=== PATIENT | male | born 1980 | race African-American/Black ===

== ENCOUNTER 2018-10-29 03:30 | Emergency (ER) | payer SELFPAY ==
[2018-10-29 03:55] LABS: Bilirubin Negative (Negative); Blood, Urine Large (Negative); Clarity CLEAR (Clear); Glucose, Urine (Dipstick) Negative (Negative); Leukocyte Negative (Negative); Nitrite Negative (Negative); Protein, Urine (Dipstick) Trace mg/dL (Neg-Trace); Specific Gravity, Urine 1.033 (1.002-1.036); pH, Urine 5.5 (5.0-9.0)
[2018-10-29 03:58] LABS: Bacteria/HPF None Seen HPF (None Seen); Hyaline Casts/LPF 4-6 HYALINE CAST LPF (0-3 Hyaline); Pathc Cast-AUWi Flag 0.43 (0-2.49); RBC/HPF 21-50 HPF (0-3); Squamous Epithelial 0-3 HPF (0-3); WBC/HPF 0-3 HPF (0-3)
[2018-10-29 04:18] LABS: Eosinophils 1 % (0-10); Hemoglobin 14.5 g/dL (14.0-18.0); Lymphocytes 52 % (21-51); MDiff Complete? YES; Mean Corpuscular HGB CONC 34.1 g/dL (32.0-36.0); Mean Corpuscular Hemoglobin 31.4 pg (27.0-31.0); Mean Corpuscular Volume 92.3 fL (78.0-98.0); Mean Platelet Volume 7.7 fL (7.4-10.4); Monocytes 6 % (0-10); Neutrophil 41 % (42-75); Platelet Count 251 thou/uL (130-400); Platelet Morphology Comment Appears Adequate; RBC Distribution Width 12.1 % (11.5-14.5); Red Blood Cell (RBC) Count 4.61 mill/uL (4.70-6.10); White Blood Cell (WBC) Count 6.7 thou/uL (4.8-10.8)
[2018-10-29 04:19] LABS: ALT (SGPT) 22 U/L (8-55); AST (SGOT) 20 U/L (5-34); Albumin 4.4 g/dL (3.5-5.0); Alkaline Phosphatase 77 U/L (40-150); Anion Gap 15 mmol/L (10-20); BUN (Urea Nitrogen) 15 mg/dL (8.9-20.6); Bilirubin, Total 0.5 mg/dL (0.2-1.2); Calc. Creatinine Clearance 0 mL/min (70-130); Calcium 9.3 mg/dL (7.8-10.44); Carbon Dioxide 24 mmol/L (22-29); Chloride 104 mmol/L (98-107); Estimated GFR-MDRD 75; Globulin 3.4 g/dL (2.4-3.5); Glucose 135 mg/dL (70-105); Lipase 27 U/L (8-78); Potassium 3.7 mmol/L (3.5-5.1); Protein, Total 7.8 g/dL (6.0-8.3); Sodium 139 mmol/L (136-145)
[2018-10-29] MEDS ORDERED: Ondansetron PF 4 MG/2 ML Vial ONE (04:55)
[2018-10-29] MEDS ORDERED: Ketorolac Tromethamine 30 MG/ML VIAL ONE (04:55)
[2018-10-29] MEDS ORDERED: Morphine 4 MG/ML VIAL ONE (04:55)
--- NOTE | 2018-10-29 16:57 | CT ---
PRELIMINARY REPORT/[facility]/EMERGENTY AFTER-HOURS PROCEDURE CT Abdomen and Pelvis Without Contrast EXAM DATE/TIME: 10/29/2018 4:45 AM CLINICAL HISTORY: 37 years old, male; Pain; Abdominal pain; Flank; Left; Patient HX: Er 5; L flank pain. 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 No urinary complaints. No reported fever. TECHNIQUE: Axial computed tomography images of the abdomen and pelvis without contrast. Coronal reformatted images were created and reviewed. COMPARISON: No relevant prior studies available. FINDINGS: Lower thorax: The lung bases are clear. ABDOMEN: Liver: Suspect mild fatty infiltration of the liver. Gallbladder and bile ducts: No definite gallbladder abnormality by CT. No biliary tree dilation. Pancreas: Unremarkable. Spleen: Unremarkable. Adrenals: Unremarkable appearance of the spleen, adrenal glands, and pancreas. Kidneys and ureters: Right kidney: 2 small right intrarenal calculi. No hydronephrosis or visible mass. No hydroureter or visible ureteral calculus. Left kidney: No intrarenal calculus. Perinephric stranding. Mild left hydronephrosis and hydroureter. There is a 5 mm distal left ureteral calculus, at the UVJ. Stomach and bowel: There are no CT findings to strongly suggest diverticulitis. Appendix: The appendix is visualized and appears normal. PELVIS: Bladder: Urinary bladder appears essentially unremarkable by CT. Possibly some mild diffuse urinary b ladder wall thickening. This may be related to prostate enlargement. While nonspecific, this could al so indicate evidence for cystitis. Please correlate clinically. Reproductive: Prostate enlargement with transverse diameter of 4.8 cm. ABDOMEN and PELVIS: Intraperitoneal space: No free air, ascites, or bowel distention. Bones/joints: No significant acute finding. Soft tissues: Small umbilical hernia, containing only fat. Vasculature: No evidence for abdominal aortic aneurysm. Lymph nodes: No retroperitoneal adenopathy. IMPRESSION: 1. 5 mm distal left ureteral calculus, at the UVJ. 2. Mild left hydronephrosis and hydroureter. 3. 2 small right intrarenal calculi. 4. Prostate enlargement and possible urinary bladder wall thickening, see above. 5. No diverticulitis. 6. Normal appendix. 7. Other findings discussed above. Thank you for allowing us to participate in the care of your patient. Dictated and Authenticated by: Mil Gonzalez MD 10/29/2018 5:44 AM Central Time ([place] & [place]) FINAL REPORT CT ABDOMEN AND PELVIS: DATE: 10/29/2018. COMPARISON: None. HISTORY: Left-sided flank pain. FINDINGS: I agree with the preliminary [facility] report dictated by Dr. Mil Gonzalez. Lack of contrast limits asses sment of the viscera, bowel vascular structures, and for lymphadenopathy. Imaged lung bases unremark able. No free intraperitoneal air or fluid. Hepatic hypodensity noted, suggesting diffuse steatosis. Spleen, gallbladder, and pancreas grossly u nremarkable. Bilateral adrenal glands within normal limits. There is mild perinephric stranding and nephromegaly on the left. There is mild left-sided hydroneph rosis and hydroureter. This is secondary to an obstructing stone at the level of the ureterovesicula r junction on the left measuring approximately 3-4 mm on axial imaging and approximately 4-5 mm on co silvestre imaging. There is a 3-4 mm nonobstructing stone in the upper pole of the right kidney. There is no evidence f or obstructive uropathy on the right. The urinary bladder is poorly assessed secondary to underdistension. Prostate gland is mildly promin ent. Evaluation of the bowel is limited without oral contrast and demonstrates no evidence for infla mmatory change or obstruction. The osseous structures demonstrate no worrisome lytic or blastic lesions. There is a punctate nonobs tructing stone suspected in lower pole of right kidney as well. IMPRESSION: A 4-5 mm obstructing stone at the left ureterovesicular junction. Nonobstructing stones within right kidney as detailed above. POS: LENO
== END 2018-10-29 07:20 | disposition home or self-care (01) ==
LOC: ERS 03:30
DX: N13.2 Hydronephrosis with renal and ureteral calculous obstruction (principal)
CPT/HCPCS: 36415; 74176; 80053; 81003; 81015; 83690; 85025; 96361; 96374; 96375; J1885; J2270; J2405